=== PATIENT | male | born 1990 | race African-American/Black ===

== ENCOUNTER 2019-06-04 19:21 | Inpatient (IN) | payer OTHER ==
[2019-06-04] MEDS: HYDROCODONE/APAP (5/325) TAB PO (22:02)
[2019-06-04] MEDS ORDERED: ONDANSETRON 4 MG INJ IV (22:30)
[2019-06-04] MEDS ORDERED: ACETAMINOPHEN 325 MG TAB PO (22:30)
[2019-06-04] MEDS ORDERED: HYDROCODONE/APAP (5/325) TAB PO (22:30)
[2019-06-04] MEDS ORDERED: NACL 0.9% 3 ML SYG IV (22:30)
[2019-06-04] MEDS: SOD CHLORIDE 0.9% 1,000 ML IV (22:50)
[2019-06-05] MEDS: HYDROCODONE/APAP (5/325) TAB PO ×4 (02:31→21:18)
[2019-06-05] MEDS: SOD CHLORIDE 0.9% 1,000 ML IV ×2 (08:28→18:17)
[2019-06-05] MEDS: CEFTRIAXONE 1 GM/50 ML (PMX) 50 ML IVPB (09:44)
[2019-06-05] MEDS: morphine 2 MG INJ IV (21:46)
[2019-06-06] MEDS: SOD CHLORIDE 0.9% 1,000 ML IV ×2 (04:35→13:09)
[2019-06-06] MEDS: HYDROCODONE/APAP (5/325) TAB PO ×4 (06:50→21:43)
[2019-06-06] MEDS: CEFTRIAXONE 1 GM/50 ML (PMX) 50 ML IVPB (10:22)
[2019-06-06] MEDS: morphine 2 MG INJ IV (13:29)
[2019-06-07] MEDS: HYDROCODONE/APAP (5/325) TAB PO ×3 (07:48→18:57)
[2019-06-07] MEDS: CEFTRIAXONE 1 GM/50 ML (PMX) 50 ML IVPB (08:57)
== END 2019-06-07 19:31 | disposition home or self-care (01) | DRG 607 ==
LOC: TEL 19:21 → MS1 06-06 22:22
PROC: 0Y9N0ZZ Drainage of Left Foot, Open Approach (ICD-10-PCS; principal; 2019-06-05)
PROC: 0Y9M0ZZ Drainage of Right Foot, Open Approach (ICD-10-PCS; 2019-06-05)
PROC: 0H9NXZZ Drainage of Left Foot Skin, External Approach (ICD-10-PCS; 2019-06-06)
PROC: 0H9MXZZ Drainage of Right Foot Skin, External Approach (ICD-10-PCS; 2019-06-06)
DX: S90.822A Blister (nonthermal), left foot, initial encounter (principal); N17.9 Acute kidney failure, unspecified; N39.0 Urinary tract infection, site not specified; S91.301A Unspecified open wound, right foot, initial encounter; S91.302A Unspecified open wound, left foot, initial encounter; F14.10 Cocaine abuse, uncomplicated; F17.200 Nicotine dependence, unspecified, uncomplicated; D64.9 Anemia, unspecified; S90.31XA Contusion of right foot, initial encounter; S90.32XA Contusion of left foot, initial encounter; S90.821A Blister (nonthermal), right foot, initial encounter; Y93.01 Activity, walking, marching and hiking; Y92.89 Other specified places as the place of occurrence of the external cause; Y99.8 Other external cause status
CPT/HCPCS: 76775; 80048; 80053; 80061; 80307; 81003; 83036; 83735; 84443; 85025; 87081; 87086